=== PATIENT | female | born 1965 | race Caucasian/White ===

== ENCOUNTER 2017-06-01 14:46 | Outpatient (CLI) | payer BC | END 2017-06-01 14:47 | disposition home or self-care (01) | LOC: BICMAMMO 14:46 | PROVIDERS: ATTEND Internal Medicine Hematology & Oncology | DX: Z03.89 Encounter for observation for other suspected diseases and conditions ruled out (principal) | CPT/HCPCS: 77066; G0279 ==

== ENCOUNTER 2017-12-25 14:16 | Outpatient (CLI) | payer BC | END 2017-12-25 14:17 | disposition home or self-care (01) | LOC: ULT 14:16 | PROVIDERS: ATTEND Family Medicine | DX: R53.83 Other fatigue (principal); R60.0 Localized edema; I08.1 Rheumatic disorders of both mitral and tricuspid valves | CPT/HCPCS: 93306 ==

== ENCOUNTER 2018-01-15 15:33 | Outpatient (CLI) | payer BC ==
--- NOTE | 2018-01-15 18:11 | MRI ---
MRI LUMBAR SPINE PERFORMED WITHOUT CONTRAST ENHANCEMENT: HISTORY: Low back pain radiating into the front of the right hip, and also some pain to the left hip. FINDINGS: The vertebral bodies are normal in height. There are disk desiccation changes at L1-L2, L2-L3, L3-L4 , and L4-L5. There is some subcutaneous edema change seen in the posterior back, nonspecific. There is no significant periaortic adenopathy. The visualized portions of the kidneys appear unremar kable. T12-L1: Unremarkable. L1-L2: Degenerative facet changes without canal or foraminal stenosis. L2-L3: No significant canal or foraminal stenosis. L3-L4: The canal is borderline at this level, with some degenerative facet changes. No foraminal na rrowing is seen. L4-L5: Degenerative facet changes without canal or foraminal stenosis. L5-S1: No significant canal or foraminal narrowing. IMPRESSION: No signs of disk herniation or canal or foraminal stenosis. POS: EARNESTINE
== END 2018-01-15 15:34 | disposition home or self-care (01) ==
LOC: SCSMRI 15:33
PROVIDERS: ATTEND Family Medicine
DX: M54.41 Lumbago with sciatica, right side (principal)
CPT/HCPCS: 72148

== ENCOUNTER 2018-07-10 08:52 | Outpatient (CLI) | payer BC ==
[2018-07-10] MEDS ORDERED: Iopamidol 370 76% 100 ML VIAL ONE (09:00)
--- NOTE | 2018-07-10 12:25 | CT ---
CT ABDOMEN AND PELVIS WITH ORAL AND IV CONTRAST: Date: 07/10/18 HISTORY: Ovarian cancer, right lower quadrant discomfort. Patient had right oophorectomy, cholecystectomy, and gastric sleeve surgery. She has been in remission since 2016. COMPARISON: 05/09/16. FINDINGS: The lung bases are clear. There are changes of cholecystectomy and hysterectomy and gastric sleeve smith rgery. The liver demonstrates decreased attenuation compared to the spleen, consistent with fatty infiltrati on. No hepatic mass or abnormal biliary ductal dilatation is seen. The spleen, pancreas, adrenal glan ds, and kidneys are unremarkable. No free air, free fluid, or lymphadenopathy seen in the abdomen or pelvis. The small bowel loops are not abnormally dilated. There are vascular calcifications without evidence of aneurysmal dilatation o f the abdominal aorta. There are degenerative changes in the spine. No osteolytic or osteoblastic les ions are seen. There is a 5 mm aortocaval lymph node which is stable. There is prominence of the wall of the sigmoid colon which may be due to incomplete distention or thi ckening. IMPRESSION: 1. No evidence of recurrent or metastatic disease. 2. Fatty liver. 3. Prominent sigmoid wall. Incomplete distention versus thickening. Evaluation with colonoscopy woul d be helpful. POS: EARNESTINE
== END 2018-07-10 08:53 | disposition home or self-care (01) ==
LOC: SCSCT 08:52
PROVIDERS: ATTEND Family Medicine
DX: C56.9 Malignant neoplasm of unspecified ovary (principal); R60.0 Localized edema; K76.0 Fatty (change of) liver, not elsewhere classified
CPT/HCPCS: 74177; Q9967

== ENCOUNTER 2018-07-10 08:53 | Outpatient (CLI) | payer BC ==
--- NOTE | 2018-07-10 11:10 | MMO ---
Bilateral MAMMO Bilat Screen [facility]. CLINICAL HISTORY: Patient is 52 years old and is seen for screening. The patient has no family history of breast cancer. The patient has a history of ovarian cancer at age 49. The patient has a history of right Excisional Biopsy in 2006 - benign. VIEWS: The views performed were: bilateral craniocaudal and bilateral mediolateral oblique. FILMS COMPARED: The present examination has been compared to prior imaging studies performed at [facility] on 04/28/2014, 04/23/2015, 08/02/2016 and 06/01/2017. This study has been interpreted with the assistance of computer-aided detection. MAMMOGRAM FINDINGS: The breasts are almost entirely fat. There are no suspicious masses, suspicious calcifications, or new areas of architectural distortion. IMPRESSION: THERE IS NO MAMMOGRAPHIC EVIDENCE OF MALIGNANCY. A ROUTINE FOLLOW-UP MAMMOGRAM IN 1 YEAR IS RECOMMENDED. ACR BI-RADS Category 1 - Negative MAMMOGRAPHY NOTE: 1. A negative mammogram report should not delay a biopsy if a dominant of clinically suspicious mass is present. 2. Approximately 10% to 15% of breast cancers are not detected by mammography. 3. Adenosis and dense breasts may obscure an underlying neoplasm.
== END 2018-07-10 08:54 | disposition home or self-care (01) ==
LOC: SCSMAMMO 08:53
PROVIDERS: ATTEND Family Medicine
DX: Z12.31 Encounter for screening mammogram for malignant neoplasm of breast (principal); Z85.43 Personal history of malignant neoplasm of ovary
CPT/HCPCS: 77067

== ENCOUNTER 2019-07-25 09:01 | Outpatient (CLI) | payer BC ==
--- NOTE | 2019-07-25 10:57 | MMO ---
Bilateral MAMMO Bilat Screen [facility]. CLINICAL HISTORY: Patient is 53 years old and is seen for screening. The patient has no family history of breast cancer. The patient has a history of ovarian cancer at age 49. The patient has a history of right Excisional Biopsy in 2006 - benign. VIEWS: The views performed were: bilateral craniocaudal with tomosynthesis and bilateral mediolateral oblique with tomosynthesis. FILMS COMPARED: The present examination has been compared to prior imaging studies performed at [facility] on 07/10/2018, and at [facility] on 04/23/2015, 08/02/2016 and 06/01/2017. This study has been interpreted with the assistance of computer-aided detection. MAMMOGRAM FINDINGS: The breasts are almost entirely fat. There are no suspicious masses, suspicious calcifications, or new areas of architectural distortion. IMPRESSION: THERE IS NO MAMMOGRAPHIC EVIDENCE OF MALIGNANCY. A ROUTINE FOLLOW-UP MAMMOGRAM IN 1 YEAR IS RECOMMENDED. THE RESULTS OF THIS EXAM WERE SENT TO THE PATIENT. ACR BI-RADS Category 1 - Negative MAMMOGRAPHY NOTE: 1. A negative mammogram report should not delay a biopsy if a dominant of clinically suspicious mass is present. 2. Approximately 10% to 15% of breast cancers are not detected by mammography. 3. Adenosis and dense breasts may obscure an underlying neoplasm. Reported by: ENID VASQUEZ MD Electonically Signed: [id number]
== END 2019-07-25 09:02 | disposition home or self-care (01) ==
LOC: BICMAMMO 09:01
PROVIDERS: ATTEND Family Medicine
DX: Z12.31 Encounter for screening mammogram for malignant neoplasm of breast (principal); Z85.43 Personal history of malignant neoplasm of ovary; Z91.89 Other specified personal risk factors, not elsewhere classified
CPT/HCPCS: 77063; 77067

== ENCOUNTER 2020-08-27 08:11 | Outpatient (CLI) | payer BC | END 2020-08-27 08:12 | disposition home or self-care (01) | LOC: BICULT 08:11 | PROVIDERS: ATTEND Family Medicine | DX: R10.11 Right upper quadrant pain (principal); K76.0 Fatty (change of) liver, not elsewhere classified; Z90.49 Acquired absence of other specified parts of digestive tract | CPT/HCPCS: 93975 ==

== ENCOUNTER 2020-10-21 18:30 | Outpatient (CLI) | payer BC | END 2020-10-21 18:31 | disposition home or self-care (01) | LOC: SLEEPLAB 18:30 | PROVIDERS: ATTEND Family Medicine | DX: G47.33 Obstructive sleep apnea (adult) (pediatric) (principal); R53.83 Other fatigue; G31.84 Mild cognitive impairment of uncertain or unknown etiology; R06.83 Snoring; G47.00 Insomnia, unspecified; I10 Essential (primary) hypertension; E66.9 Obesity, unspecified; Z68.37 Body mass index [BMI] 37.0-37.9, adult | CPT/HCPCS: 95806 ==

== ENCOUNTER 2020-12-31 14:00 | Outpatient (CLI) | payer BC ==
[2020-12-31 14:57] LABS: #Basophils 0.1 10x3/uL (0.0-0.2); #Eosinphils 0.3 10x3/uL (0.0-0.5); #Monocytes 0.4 10x3/uL (0.0-1.1); #Neutrophils 5.4 10x3/uL (1.5-8.4); %Basophils 0.8 % (0.0-2.0); %Eosinophils 3.8 % (0.0-6.0); %Lymphocytes 28.1 % (18.0-47.0); %Neutrophils 61.7 % (40.0-75.0); Bilirubin Neg (Negative); Blood, Urine Negative (Negative); Clarity Clear (Clear); Glucose, Urine (Dipstick) Normal (Negative); Hemoglobin 12.1 g/dL (12.0-15.5); Ketone, Urine Negative (Negative); Leukocyte Negative (Negative); Mean Corpuscular HGB CONC 31.4 g/dL (32.0-36.0); Mean Corpuscular Volume 95.5 fl (81.6-98.3); Mean Platelet Volume 9.8 fl (7.4-10.4); Nitrite Negative (Negative); Platelet Count 221 10x3/uL (150-450); Protein, Urine (Dipstick) Negative (Neg-Trace); Red Blood Cell (RBC) Count 4.03 10x6/uL (3.90-5.03); Specific Gravity, Urine 1.005 (1.002-1.036); Urobilinogen Normal mg/dL (Less than 2); White Blood Cell (WBC) Count 8.7 10x3/uL (3.5-10.5)
[2021-01-01 11:54] LABS: SARS-CoV-2 PCR by NAA Not Detected (NotDetected)
== END 2020-12-31 14:01 | disposition home or self-care (01) ==
LOC: LABBT 14:00
PROVIDERS: ATTEND Orthopaedic Surgery Hand Surgery
DX: Z01.818 Encounter for other preprocedural examination (principal); G56.21 Lesion of ulnar nerve, right upper limb; G56.01 Carpal tunnel syndrome, right upper limb; Z20.822 Contact with and (suspected) exposure to COVID-19
CPT/HCPCS: 81003; 85025; 93005; 93010; U0003; U0005

== ENCOUNTER 2021-01-04 12:14 | Day surgery (SDC) | payer BC ==
[2020-12-31 15:08] VITALS: BMI 43.7
[2021-01-04] MEDS ORDERED: Clindamycin/D5W 900 mg/50 ml Premix Bag ONE (13:59)
[2021-01-04] MEDS ORDERED: Levofloxacin 500 mg/D5W 100 ml Premix Bag ONE (13:59)
[2021-01-04] MEDS ORDERED: Rocuronium Bromide 10 MG/ML (10ML VIAL) ONE (14:27)
[2021-01-04] MEDS ORDERED: Lidocaine 1% PF 5 ML VIAL ONE (14:27)
[2021-01-04] MEDS ORDERED: PROPOFOL 200 MG/20 ML VIAL ONE (14:27)
[2021-01-04] MEDS ORDERED: Succinylcholine 200 MG/10 ml SYRINGE FS ONE (14:27)
[2021-01-04] MEDS ORDERED: Ondansetron PF 4 MG/2 ML Vial ONE (14:27)
[2021-01-04] MEDS ORDERED: Dexamethasone 20 MG/5 ML VIAL ONE (14:27)
[2021-01-04] MEDS ORDERED: Fentanyl 100 MCG/2 ML VIAL ONE ×3 (14:30→17:02)
[2021-01-04] MEDS ORDERED: Bupivacaine PF 0.5% 30 ML VIAL ONE (14:55)
[2021-01-04] MEDS ORDERED: Ketorolac Tromethamine 30 MG/ML VIAL ONE (17:16)
== END 2021-01-04 18:56 | disposition home or self-care (01) ==
LOC: SDC 12:14
PROVIDERS: ATTEND Orthopaedic Surgery Hand Surgery
PROC: 01N40ZZ Release Ulnar Nerve, Open Approach (ICD-10-PCS; principal; 2021-01-04)
PROC: 01N50ZZ Release Median Nerve, Open Approach (ICD-10-PCS; principal; 2021-01-04)
DX: G56.03 Carpal tunnel syndrome, bilateral upper limbs (principal); G56.23 Lesion of ulnar nerve, bilateral upper limbs; E78.00 Pure hypercholesterolemia, unspecified; J45.909 Unspecified asthma, uncomplicated; E78.5 Hyperlipidemia, unspecified; E66.9 Obesity, unspecified; Z68.41 Body mass index [BMI] 40.0-44.9, adult; Z87.891 Personal history of nicotine dependence; Z79.899 Other long term (current) drug therapy; Z88.0 Allergy status to penicillin; Z88.8 Allergy status to other drugs, medicaments and biological substances; Z91.040 Latex allergy status
CPT/HCPCS: J1100; J1885; J1956; J2405; J2704; J3010; J3490; S0020

== ENCOUNTER 2021-09-28 11:46 | Outpatient (CLI) | payer BC ==
[2021-09-28 12:38] LABS: #Basophils 0.1 10x3/uL (0.0-0.2); #Eosinphils 0.3 10x3/uL (0.0-0.5); #Monocytes 0.5 10x3/uL (0.0-1.1); #Neutrophils 3.7 10x3/uL (1.5-8.4); %Basophils 0.7 % (0.0-2.0); %Eosinophils 4.1 % (0.0-6.0); %Lymphocytes 35.9 % (18.0-47.0); %Monocytes 6.6 % (0.0-10.0); %Neutrophils 52.3 % (40.0-75.0); Hemoglobin 11.3 g/dL (12.0-15.5); Mean Corpuscular HGB CONC 31.6 g/dL (32.0-36.0); Mean Corpuscular Hemoglobin 29.8 pg (27.0-33.0); Mean Corpuscular Volume 94.5 fl (81.6-98.3); Mean Platelet Volume 10.1 fl (7.4-10.4); Platelet Count 218 10x3/uL (150-450); RBC Distribution Width 12.8 % (11.5-14.5); Red Blood Cell (RBC) Count 3.79 10x6/uL (3.90-5.03)
== END 2021-09-28 11:47 | disposition home or self-care (01) ==
LOC: LABBT 11:46
PROVIDERS: ATTEND Orthopaedic Surgery Hand Surgery
DX: Z01.812 Encounter for preprocedural laboratory examination (principal); G56.02 Carpal tunnel syndrome, left upper limb; G56.22 Lesion of ulnar nerve, left upper limb; Z20.822 Contact with and (suspected) exposure to COVID-19
CPT/HCPCS: 85025; 87811

== ENCOUNTER 2021-10-05 11:13 | Outpatient (CLI) | payer BC ==
[2021-10-05 13:01] LABS: #Eosinphils 0.2 10x3/uL (0.0-0.5); #Monocytes 0.3 10x3/uL (0.0-1.1); #Neutrophils 3.2 10x3/uL (1.5-8.4); %Basophils 0.7 % (0.0-2.0); %Eosinophils 3.8 % (0.0-6.0); %Lymphocytes 36.5 % (18.0-47.0); %Monocytes 5.6 % (0.0-10.0); %Neutrophils 53.1 % (40.0-75.0); Hemoglobin 10.4 g/dL (12.0-15.5); Mean Corpuscular HGB CONC 31.7 g/dL (32.0-36.0); Mean Corpuscular Hemoglobin 30.3 pg (27.0-33.0); Mean Corpuscular Volume 95.6 fl (81.6-98.3); Mean Platelet Volume 10.3 fl (7.4-10.4); Platelet Count 213 10x3/uL (150-450); RBC Distribution Width 13.2 % (11.5-14.5); Red Blood Cell (RBC) Count 3.43 10x6/uL (3.90-5.03); White Blood Cell (WBC) Count 6.1 10x3/uL (3.5-10.5)
[2021-10-05 13:35] LABS: ALT (SGPT) 33 U/L (8-55); AST (SGOT) 21 U/L (5-34); Albumin 4.3 g/dL (3.5-5.0); Alkaline Phosphatase 109 U/L (40-110); Anion Gap 11 mmol/L (10-20); BUN (Urea Nitrogen) 8 mg/dL (9.8-20.1); Bilirubin, Total 0.9 mg/dL (0.2-1.2); Calc. Creatinine Clearance 0 mL/min (70-130); Calcium 9.4 mg/dL (7.8-10.44); Carbon Dioxide 27 mmol/L (22-29); Chloride 107 mmol/L (98-107); Estimated GFR 95; Globulin 2.2 g/dL (2.4-3.5); Glucose 86 mg/dL (70-105); Potassium 4.2 mmol/L (3.5-5.1); Protein, Total 6.5 g/dL (6.0-8.3); Sodium 141 mmol/L (136-145)
== END 2021-10-05 11:14 | disposition home or self-care (01) ==
LOC: LABBT 11:13
PROVIDERS: ATTEND Internal Medicine Cardiovascular Disease
DX: Z01.812 Encounter for preprocedural laboratory examination (principal); Z20.822 Contact with and (suspected) exposure to COVID-19
CPT/HCPCS: 80053; 85025; 87811

== ENCOUNTER 2021-10-08 07:57 | Day surgery (SDC) | payer BC ==
[2021-10-07 10:49] VITALS: BMI 45.4
[2021-10-08] MEDS ORDERED: Iopamidol 370 76% 100 ML VIAL ONE (08:35)
[2021-10-08 09:32] LABS: Cardiac Risk 3.9 (Less than 4.5)
[2021-10-08] MEDS ORDERED: Fentanyl 100 MCG/2 ML VIAL ONE (10:11)
[2021-10-08] MEDS ORDERED: Verapamil 5 MG/2 ML VIAL ONE (10:11)
[2021-10-08] MEDS ORDERED: Midazolam HCl 2 mg/2 ml Vial ONE ×2 (10:11→11:17)
[2021-10-08] MEDS ORDERED: Heparin 10,000 UNITS/ 10 ML VIAL ONE (10:11)
[2021-10-08] MEDS ORDERED: Nitroglycerin 100MG/250ML BOT 250 ML ONE (10:12)
[2021-10-08] MEDS ORDERED: Lidocaine 1% MPF 2 ML VIAL ONE (10:24)
== END 2021-10-08 14:03 | disposition home or self-care (01) ==
LOC: SDC 07:57
PROVIDERS: ATTEND Internal Medicine Cardiovascular Disease
DX: R07.9 Chest pain, unspecified (principal); R06.02 Shortness of breath; D64.9 Anemia, unspecified; Z88.0 Allergy status to penicillin; Z88.8 Allergy status to other drugs, medicaments and biological substances; Z79.899 Other long term (current) drug therapy
CPT/HCPCS: 80061; 93458; 99152; C1894; J1644; J2250; J3010